=== PATIENT | female | born 1970 | race Caucasian/White ===

== ENCOUNTER 2022-01-02 11:37 | Outpatient (CLI) | payer BC | END 2022-01-02 11:38 | disposition home or self-care (01) | LOC: CSHMAMMO 11:37 | PROVIDERS: ATTEND Family Medicine | DX: Z12.31 Encounter for screening mammogram for malignant neoplasm of breast (principal); Z80.3 Family history of malignant neoplasm of breast | CPT/HCPCS: 77063; 77067 ==

== ENCOUNTER 2023-01-05 14:43 | Outpatient (CLI) | payer BC | END 2023-01-05 14:44 | disposition home or self-care (01) | LOC: CSHMAMMO 14:43 | PROVIDERS: ATTEND Family Medicine | DX: Z12.31 Encounter for screening mammogram for malignant neoplasm of breast (principal); Z80.3 Family history of malignant neoplasm of breast | CPT/HCPCS: 77063; 77067 ==

== ENCOUNTER 2024-01-07 10:54 | Outpatient (CLI) | payer BC | END 2024-01-07 10:55 | disposition home or self-care (01) | LOC: CSHMAMMO 10:54 | PROVIDERS: ATTEND Family Medicine | DX: Z12.31 Encounter for screening mammogram for malignant neoplasm of breast (principal) | CPT/HCPCS: 77063; 77067 ==

== ENCOUNTER 2025-01-16 14:23 | Outpatient (CLI) | payer BC | END 2025-01-16 14:24 | disposition home or self-care (01) | LOC: CSHMAMMO 14:23 | PROVIDERS: ATTEND Family Medicine | DX: Z12.31 Encounter for screening mammogram for malignant neoplasm of breast (principal); Z80.3 Family history of malignant neoplasm of breast | CPT/HCPCS: 77063; 77067 ==